=== PATIENT | female | born 1970 | race Caucasian/White ===

== ENCOUNTER → 2016-09-29 | Outpatient (CLI) | payer BC ==
[~2016-09-29] MED LIST: BIRTH CONTROL; LRT10T
--- NOTE | 2016-09-29 20:05 | Diagnostic Imaging Report ---
Bilateral screening mammogram 2D views with tomosynthesis The current study was also evaluated with a Computer Aided Detection (CAD) system. Indication: Screening. No current complaints stated on the questionnaire. COMPARISON: 09/28/15 FINDINGS: The breasts are composed of heterogeneously dense parenchyma which may decrease mammographic sensitivity. Stable circumscribed 4 mm lateral and 5 mm retroareolar right breast nodules are again seen probably representing small cysts. Allowing for technique and positional differences, no suspicious change is seen. IMPRESSION: No significant change. ACR BI-RADS Category 2: Benign findings. Result letter will be mailed to the patient. Note: At least 10% of breast cancer is not imaged by mammography. Dictated by: Dictated on workstation # [id number]
== END ==
LOC: RAD 09:38
PROVIDERS: ATTEND Family Medicine
DX: Z12.31 Encounter for screening mammogram for malignant neoplasm of breast (principal)
CPT/HCPCS: 77067

== ENCOUNTER → 2017-09-27 | Outpatient (CLI) | payer BC ==
--- NOTE | 2017-09-27 15:30 | Diagnostic Imaging Report ---
PROCEDURE: US Non-ob pelvis comp/trans. TECHNIQUE: Multiple realtime grayscale images were obtained of the pelvis in various projections endovaginally. Transabdominal imaging was also performed. INDICATION: Abnormal uterine bleeding. FINDINGS: The uterus measures 9.1 x 4.8 x 4.0 cm. No myometrial mass is seen. The endometrium is 6 mm in thickness. The ovaries were not visualized. No adnexal mass or free fluid is seen. IMPRESSION: Nonvisualized ovaries. The study is otherwise unremarkable. Dictated by: Dictated on workstation # [id number]
--- NOTE | 2017-09-28 08:26 | Diagnostic Imaging Report ---
INDICATION: Routine screening. Comparison is made with prior exam from 09/29/2016 and 09/28/2015. 2-D and 3-D bilateral screening mammography was performed with Computer Aided Detection (CAD) system. FINDINGS: Scattered fibroglandular densities are identified bilaterally. The parenchymal pattern is stable. The circumscribed nodules in the right breast are stable and consistent with benign etiology. No spiculated mass or malignant appearing microcalcifications are seen. The axillae are unremarkable. IMPRESSION: No mammographic features suspicious for malignancy are identified. ACR BI-RADS Category 2: Benign findings. Result letter will be mailed to the patient. Note: At least 10% of breast cancer is not imaged by mammography. Dictated by: Dictated on workstation # [id number]
== END ==
LOC: RAD 14:15
PROVIDERS: ATTEND Family Medicine
DX: Z12.31 Encounter for screening mammogram for malignant neoplasm of breast (principal); N93.9 Abnormal uterine and vaginal bleeding, unspecified
CPT/HCPCS: 76830; 76856; 77067

== ENCOUNTER → 2019-10-02 | Outpatient (CLI) | payer BC ==
--- NOTE | 2019-10-02 12:24 | Diagnostic Imaging Report ---
INDICATION: Routine screening. Comparison is made with prior mammogram 09/30/2018 and 09/27/2017. 2-D and 3-D bilateral screening mammography was performed with CAD. Both breasts remain heterogeneously dense, limiting the sensitivity of mammography. Both breasts contain circumscribed nodules which appear stable and likely benign. No dominant mass or malignant appearing microcalcifications are identified. Axillae are unremarkable. IMPRESSION: BI-RADS Category 2 No mammographic features suspicious for malignancy are identified. ACR BI-RADS Category 2: Benign findings. Result letter will be mailed to the patient. Note: At least 10% of breast cancer is not imaged by mammography. Dictated by: Dictated on workstation # [id number]
== END ==
LOC: RAD 09:47
PROVIDERS: ATTEND Family Medicine
DX: Z12.31 Encounter for screening mammogram for malignant neoplasm of breast (principal)
CPT/HCPCS: 77063; 77067

== ENCOUNTER → 2020-10-04 | Outpatient (CLI) | payer BC ==
--- NOTE | 2020-10-04 09:17 | Diagnostic Imaging Report ---
INDICATION: Routine screening. COMPARISON: 10/02/2019 and 07/15/2018. TECHNIQUE: 2D and 3D bilateral screening mammography was performed with CAD. FINDINGS: Both breasts remain heterogeneously dense, limiting the sensitivity of mammography. Circumscribed nodules in the right breast are stable. No spiculated mass or malignant-appearing microcalcifications are seen. Axillae are unremarkable. IMPRESSION: No mammographic features suspicious for malignancy are identified. ACR BI-RADS Category 2: Benign findings. Result letter will be mailed to the patient. Note: At least 10% of breast cancer is not imaged by mammography. Dictated by: Dictated on workstation # [id number]
== END ==
LOC: RAD 07:30
PROVIDERS: ATTEND Family Medicine
DX: Z12.31 Encounter for screening mammogram for malignant neoplasm of breast (principal)
CPT/HCPCS: 77063; 77067

== ENCOUNTER → 2021-10-05 | Outpatient (CLI) | payer BC ==
--- NOTE | 2021-10-05 12:45 | Diagnostic Imaging Report ---
Indication: Routine screening. Comparison is made with prior mammogram 10/04/2020 and 10/02/2019. 2-D and 3-D bilateral screening mammography was performed with CAD. CAD is utilized. The current study was also evaluated with a Computer Aided Detection (CAD) system. Both breasts are heterogeneously dense, limiting the sensitivity of mammography. The circumscribed nodules in both breasts appear stable. No new mass or malignant appearing microcalcifications are seen. Axillae are unremarkable. IMPRESSION: BI-RADS Category 2 No mammographic features suspicious for malignancy are identified. ACR BI-RADS Category 2: Benign findings. Result letter will be mailed to the patient. Note: At least 10% of breast cancer is not imaged by mammography. Dictated by: Dictated on workstation # [id number]
== END ==
LOC: RAD 08:00
PROVIDERS: ATTEND Family Medicine
DX: Z12.31 Encounter for screening mammogram for malignant neoplasm of breast (principal)
CPT/HCPCS: 77063; 77067

== ENCOUNTER 2022-10-25 07:00 | Outpatient (CLI) | payer BC ==
[~2022-10-25] VITALS: Ht 157.5 cm; Wt 116.8 kg
[2022-10-26] MEDS ORDERED: LORA10TA7 PO (14:58)
[2022-10-26] MEDS ORDERED: LISI5TAB20 PO (14:58)
[2022-10-26] MEDS ORDERED: OMEG10005 PO (14:58)
[2022-10-26] MEDS ORDERED: ST.300TA4 PO (14:58)
== END 2022-10-26 15:01 | disposition home or self-care (01) ==
LOC: PREOP 07:00
PROVIDERS: ATTEND Internal Medicine
DX: Z01.818 Encounter for other preprocedural examination (principal)

== ENCOUNTER 2022-11-03 07:12 | Day surgery (SDC) | payer BC ==
--- NOTE | 2022-10-25 08:58 | HISTORY AND PHYSICAL ---
COLONOSCOPY HISTORY AND PHYSICAL HISTORY OF PRESENT ILLNESS: The patient is a 52-year-old white female referred by Dr. Garibay for her first screening colonoscopy. She is deemed to be of average risk as she is not aware of any family history for colon cancer or polyps. Denies bright red blood per rectum, melena or change in bowel habits. This will be her first screening colonoscopy. PAST MEDICAL HISTORY: Significant for hypertension and seasonal allergies that she takes as needed loratadine. Only other prescription medication is lisinopril 5 mg daily. She denies aspirin nonsteroidal use. PAST SURGICAL HISTORY: Significant for a 27 years ago and cholecystectomy laparoscopically in the past. 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 She reports no past smoking history and no significant alcohol intake history. FAMILY HISTORY: Father is living at the age of 77 with history of coronary artery disease. Mother is living at the age of 77 with no health problems. He has 4 siblings, two brothers, two sisters with no reported health problems. REVIEW OF SYSTEMS: CONSTITUTIONAL: Denies night sweats, chills, fever or change in weight. PULMONARY: Denies cough, wheezing or shortness of breath. GASTROINTESTINAL: As noted in HPI. CARDIOVASCULAR: Denies chest pain, orthopnea, PND, or pedal edema. PHYSICAL EXAMINATION: GENERAL: Reveals a pleasant white female in no acute distress. VITAL SIGNS: A 5 feet 2 inches tall, weighing 257 pounds with a BMI of 47. HEENT: Unremarkable. She has a Mallampati 3 oropharyngeal configuration. CHEST: Clear to auscultation. CARDIOVASCULAR: Reveals a regular rate and rhythm without murmur, S3, or S4. ABDOMEN: Soft, supple without mass, organomegaly, or tenderness. EXTREMITIES: Revealed no cyanosis, clubbing or edema. ASSESSMENT AND PLAN: The patient is being set up for screening colonoscopy deemed to be of average risk. We did discuss oropharyngeal configuration increases the risk for significant sleep apnea. We will be monitoring for this during her procedure. Her hypertension appears to be under reasonable control. I thank you for the referral of this pleasant lady. Prep instructions were given and questions were answered. Job ID: [id number] DocumentID: [id number] Dictated Date: 10/09/2022 16:13:01 Scale And Skip Car Operator Date: 10/09/2022 17:24:00 Dictated By: ZACHARY WILSON MD
[~2022-11-03] VITALS: Ht 157.5 cm; Wt 116.8 kg
[~2022-11-03 07:12] MED LIST changes: +LISI5TAB20 PO; +LORA10TA7 PO; +OMEG10005 PO; +ST.300TA4 PO
[2022-11-03] MEDS ORDERED: LACTATED RINGERS 1,000 ML 1,000 ML IV STA (07:13)
[2022-11-03 07:41] VITALS: BP 130/83
--- NOTE | 2022-11-03 07:51 | Pre-Op Note & Conscious Sedat ---
Pre-Operative Progress Note Date H&P Reviewed: Nov 03, 2022 Time H&P Reviewed: 07:50 History & Physical: H&P Reviewed, Patient Examed, No changes noted Pre-Op Diagnosis: screening Moderate Sedation PreProcedure ASA Score 2 Airway Lungs Heart ASA score ASA 1: a normal healthy patient ASA 2: a patient with a mild systemic disease (mid diabetes, controlled hypertension, obesity ASA 3: a patient with a severe systemic disease that limits activity (angina, COPD, prior Myocardial infarction) ASA 4: a patient with an incapacitating disease that is a constant threat to life (CHF, renal failure) ASA 5: a moribund patient not expected to survive 24 hrs. (ruptured aneurysm) ASA 6: a declared brain- patient whose organs are being harvested. For emergent operations, add the letter E after the classification Mallampati Classification Grade 2 Sedation Plan Analgesia, Amnesia, Plan communicated to team members, Discussed options with patient/fam, Discussed risks with patient/fam The patient is an appropriate candidate to undergo the planned procedure, sedation, and anesthesia. The patient immediately re-assessed prior to indication. ZACHARY WILSON MD Nov 03, 2022 07:51
[2022-11-03 08:30] VITALS: BP 119/63
--- NOTE | 2022-11-03 08:30 | Anesthesia-General Post-Op ---
MAC Patient Condition Mental Status/LOC: Same as Preop Cardiovascular: Satisfactory Nausea/Vomiting: Absent Respiratory: Satisfactory Pain: Controlled Complications: Absent Post Op Complications Complications None Follow Up Care/Instructions Patient Instructions None needed. Anesthesiology Discharge Order Discharge Order Patient is doing well, no complaints, stable vital signs, no apparent adverse anesthesia problems. No complications reported per nursing. BJ HARP CRNA Nov 03, 2022 08:30
--- NOTE | 2022-11-03 08:32 | Progress Note-Post Operative ---
Post-Procedure Note Physician (s)/Compositor Apprentice (s) Physician ZACHARY WILSON MD Pre-Procedure Diagnosis Pre-Procedure Diagnosis: screening Post-Procedure Diagnosis Post-operative diagnosis: Prior to undergoing colonoscopy digital rectal evaluation was performed. Anal sphincter tone was normal and the perianal reflexes intact. No abnormalities noted on digital inspection anal canal or distal rectal vault. The colonoscope was then inserted into the rectum and under direct visualization advanced to the cecum. The cecum was identified by the indication of the appendiceal orifice and the ileocecal valve. Photographic documentation was obtained. Careful inspection was made as the colonoscope withdrawn. Quality the prep was good. Findings there are no evidence for internal or external hemorrhoids. Present in the mid rectum was a sessile lobulated 1.5 cm adenomatous appearing polyp without ulceration photograph was obtained it was then snared and removed in its entirety submitted for histopathology with minimal blood loss. The remainder the rectum sigmoid colon descending colon splenic flexure transverse colon hepatic flexure and ascending colon were unremarkable. A 3 to 4 mm sessile polyp was noted in the cecum that was photographed biopsied and ablated with no blood loss. A/P 1. 2 polyps removed today the larger from the mid rectum and smaller from the cecum as noted above via snare and hot biopsy respectively. Provided there are no surprises on histopathology we will be advocating repeat surveillance colonoscopy in 1 year. 2. Patient did exhibit obstructive breathing pattern on her back with body habitus and oropharyngeal airway conducive due to significant sleep apnea this was discussed with the patient with consideration for sleep study. I thank you for the furl this pleasant lady sincerely Zachary Wilson MD. CC: MD STEVE Sethi MARK D MD Nov 03, 2022 08:32
[2022-11-03 08:35] VITALS: BP 119/65
[2022-11-03 08:42] VITALS: BP 124/75
[2022-11-03 08:54] VITALS: BP 124/75
== END 2022-11-03 09:14 | disposition home or self-care (01) ==
LOC: ENDO 07:12
PROVIDERS: ATTEND Internal Medicine
DX: Z12.11 Encounter for screening for malignant neoplasm of colon (principal); D12.0 Benign neoplasm of cecum; D12.8 Benign neoplasm of rectum; E66.9 Obesity, unspecified; I10 Essential (primary) hypertension; Z79.899 Other long term (current) drug therapy; Z68.42 Body mass index [BMI] 45.0-49.9, adult

== ENCOUNTER 2023-01-21 22:52 | Emergency (ER) | payer BC ==
[~2023-01-21] VITALS: Ht 157.5 cm; Wt 116.8 kg
[2023-01-21] MEDS ORDERED: NITROGLYCERIN 2% OINT 1 GM UNIT DOSE PACKET TOP STA (23:17)
--- NOTE | 2023-01-21 23:26 | ED Cardiac General ---
History of Present Illness General Chief Complaint: Chest Pain Stated Complaint: HIGH BP Nursing Triage Note: TO ED VIA POV AND AMBULATORY TO ROOM 7 WITH C/O "PROBLEMS WITH BLOOD PRESSURE". PT STATES SBP USUALLY IN ONE TEENS, BUT FELT WEIRD EARLIER AND CHECK BP AND IT WAS 141/99 AND 150/102. C/O CHEST "BURNING" IN CENTER OF CHEST SINCE 1400 WITH RADIATION TO RIGHT JAW AND SOME SOA. PT VERY TEARFUL DURING TRIAGE. Source: patient History of Present Illness Date Seen by Provider: Jan 21, 2023 Time Seen by Provider: 23:05 Initial Comments PT ARRIVES VIA POV FROM HOME PT STATES THAT SINCE 1400 TODAY, SHE HAS HAD BURNING AND TIGHTNESS IN THE CENTER OF HER CHEST, AND PAIN RADIATES TO RIGHT JAW HAS ALSO BEEN SHORT OF BREATH TODAY SHE CHECKED HER BP TONIGHT AND IT WAS 141/99 AND THEN 150/102, SO CAME HERE PT STATES HER NORMAL BP IS IN 110'S SYSTOLIC. SHE WAS STARTED LISINOPRIL 5 MG IN JULY OR AUGUST OF THIS YEAR NO SWEATS NO NAUSEA/VOMITING NO SWELLING IN LEGS/FEET OR PAIN IN CALVES STATES HER HEART HAS BEEN POUNDING AND RACING NO HEADACHE NO VISION CHANGES SHE HAS HAD ONGOING EPISODES OF DIZZINESS. SHE HAS BEEN VERY TIRED ALL WEEK--NO COUGH OR COLD SYMPTOMS, NO FEVER, NO GI SYMPTOMS, NO HEADACHE SHE C/O BEING EXTREMELY ANXIOUS ALL THE TIME SHE STATES SHE HAS BEEN GOING THROUGH MENOPAUSE--LMP 11/18/2021. ASA po INTER FOLD ROLL CUTTER: No PCP: DR. GARCIA Allergies and Home Medications Allergies Coded Allergies: Sulfa (Sulfonamides) (Unverified Allergy, Mild, FLUSHED, 03/16/09) Patient Home Medication List Home Medication List Reviewed: Yes Lisinopril (Lisinopril) 5 Mg Tablet, 5 MG PO DAILY, (Reported) Entered as Reported by: KIRT AU on 10/26/221457 Loratadine (Loratadine) 10 Mg Tablet, 10 MG PO DAILY, (Reported) Entered as Reported by: KIRT AU on 10/26/221457 [place]-3 Fatty Acids ([place]-3) 1,000 Mg Capsule, 1,000 MG PO DAILY, (Reported) Entered as Reported by: KIRT AU on 10/26/221457 [place]'s Wort (Matthew's Wort) 300 Mg Tablet, 300 MG PO DAILY, (Reported) Entered as Reported by: KIRT AU on 10/26/22 7448 Review of Systems Review of Systems Constitutional: see HPI EENTM: See HPI Respiratory: See HPI Cardiovascular: See HPI Gastrointestinal: No Symptoms Reported; Denies Abdominal Pain, Denies Nausea, Denies Vomiting Genitourinary: No Symptoms Reported Musculoskeletal: no symptoms reported Skin: no symptoms reported Psychiatric/Neurological: See HPI, Anxiety Endocrine: No Symptoms Reported Hematologic/Lymphatic: No Symptoms Reported Past Yehpbzn-Diowgf-Qprozk Hx Patient Social History Tobacco Use?: No Substance use?: No Alcohol Use?: No Immunizations Up To Date Influenza Vaccine Up-to-Date: Yes; Up-to-Date COVID19 Vaccine Ski Patrol: STATES 4 VACCINES Seasonal Allergies Seasonal Allergies: Yes Past Medical History Surgeries: Yes (COLONOSCOPY 09/2022) Section, Gallbladder Respiratory: No Cardiac: Yes Hypertension Neurological: No Reproductive Disorders: No Sexually Transmitted Disease: No Genitourinary: No Gastrointestinal: Yes (S/P CHOLECYSTECTOMY) Gall Bladder Disease Musculoskeletal: No Endocrine: No HEENT: Yes (glasses) Cancer: No Psychosocial: Yes Anxiety Integumentary: No Blood Disorders: No Physical Exam Vital Signs Vital Signs - First Documented 01/21/23 23:13 Temp 37.0 Pulse 79 Resp 16 B/P (MAP) 166/105 (125) Pulse Ox 100 O2 Delivery Room Air Capillary Refill : Less Than 3 Seconds Height, Weight, BMI Height: '" Weight: lbs. oz. kg; 47.00 BMI Method: General Appearance: WD/WN, Anxious, Other (EXTREMELY ANXIOUS AND CRYING UNCONTROLLABLY) HEENT: PERRL/EOMI Neck: Normal Inspection Respiratory: Chest Non Tender, Normal Breath Sounds, No Accessory Muscle Use, No Respiratory Distress Cardiovascular: Regular Rate, Rhythm, No Edema, No JVD, No Murmur, Normal Peripheral Pulses Gastrointestinal: Non Tender, Soft Extremity: Normal Capillary Refill, Normal Inspection, Normal Range of Motion, Non Tender, No Calf Tenderness, No Pedal Edema Neurologic/Psychiatric: Alert, Oriented x3, No Motor/Sensory Deficits, brand sales manager II- XII Norm as Tested Skin: Normal Color, Warm/Dry Progress/Results/Core Measures Results/Orders Lab Results Laboratory Tests Test 01/21/23 23:08 Range/Units White Blood Count 10.3 4.3-11.0 10^3/uL Red Blood Count 4.36 3.80-5.11 10^6/uL Hemoglobin 12.7 11.5-16.0 g/dL Hematocrit 40 35-52 % Mean Corpuscular Volume 92 80-99 fL Mean Corpuscular Hemoglobin 29 25-34 pg Mean Corpuscular Hemoglobin Concent 32 32-36 g/dL Red Cell Distribution Width 13.9 10.0-14.5 % Platelet Count 235 130-400 10^3/uL Mean Platelet Volume 11.2 9.0-12.2 fL Immature Granulocyte % (Auto) 0 % Neutrophils (%) (Auto) 61 42-75 % Lymphocytes (%) (Auto) 28 12-44 % Monocytes (%) (Auto) 6 0-12 % Eosinophils (%) (Auto) 4 0-10 % Basophils (%) (Auto) 1 0-10 % Neutrophils # (Auto) 6.3 1.8-7.8 10^3/uL Lymphocytes # (Auto) 2.9 1.0-4.0 10^3/uL Monocytes # (Auto) 0.6 0.0-1.0 10^3/uL Eosinophils # (Auto) 0.5 H 0.0-0.3 10^3/uL Basophils # (Auto) 0.1 0.0-0.1 10^3/uL Immature Granulocyte # (Auto) 0.0 0.0-0.1 10^3/uL Percent Immature Platelet Fraction 8.6 H 0.0-7.6 % Prothrombin Time 13.0 12.2-14.7 SEC INR Comment 1.0 0.8-1.4 Activated Partial Thromboplast Time 35 24-35 SEC D-Dimer 0.56 H 0.00-0.49 UG/ML Sodium Level 141 135-145 MMOL/L Potassium Level 4.1 3.6-5.0 MMOL/L Chloride Level 103 98-107 MMOL/L Carbon Dioxide Level 27 21-32 MMOL/L Anion Gap 11 5-14 MMOL/L Blood Urea Nitrogen 14 7-18 MG/DL Creatinine 1.00 0.60-1.30 MG/DL Estimat Glomerular Filtration Rate 69 BUN/Creatinine Ratio 14 Glucose Level 109 H 70-105 MG/DL Calcium Level 10.6 H 8.5-10.1 MG/DL Corrected Calcium 10.2 H 8.5-10.1 MG/DL Magnesium Level 2.3 1.6-2.4 MG/DL Total Bilirubin 0.3 0.1-1.0 MG/DL Aspartate Amino Transf (AST/SGOT) 18 5-34 U/L Alanine Aminotransferase (ALT/SGPT) 22 0-55 U/L Alkaline Phosphatase 86 40-136 U/L Total Creatine Kinase 67 29-168 U/L Creatine Kinase MB 1.0 <6.6 NG/ML Myoglobin 25.7 10.0-92.0 NG/ML Troponin I < 0.028 <0.028 NG/ML B-Type Natriuretic Peptide 11.7 <100.0 PG/ML Total Protein 7.9 6.4-8.2 GM/DL Albumin 4.5 3.2-4.5 GM/DL Amylase Level 74 25-125 U/L Lipase 11 8-78 U/L Serum Test, Qualitative NEGATIVE NEGATIVE My Orders Orders - CED SANTACRUZ DO Ekg Tracing (01/21/23 23:04) Cbc And Automated Diff (01/21/23 23:17) Magnesium (01/21/23 23:17) Chest 1 View, Ap/Pa Only (01/21/23 23:17) Comprehensive Metabolic Panel (01/21/23 23:17) Myoglobin Serum (01/21/23 23:17) Protime With Inr (01/21/23 23:17) Partial Thromboplastin Time (01/21/23 23:17) O2 (01/21/23 23:17) Monitor-Rhythm Ecg Trace Only (01/21/23 23:17) Ed Iv/Invasive Line Start (01/21/23 23:17) Creatine Kinase (01/21/23 23:17) Creatine Kinase Mb (01/21/23 23:17) Lipase (01/21/23 23:17) Amylase (01/21/23 23:17) Bnp Mar[place] (01/21/23 23:17) Fibrin Degradation Products (01/21/23 23:17) Troponin I [place] (01/21/23 23:17) Nitroglycerin Ointment (Nitroglycerin (01/21/23 23:17) Aspirin Chewable Tablet (Aspirin Chewabl (01/21/23 23:30) Hcg,Qualitative Serum (01/21/23 23:17) Ondansetron Injection (Ondansetron Inj (01/22/23 00:00) Ed Iv/Invasive Line Start (01/21/23 23:51) Lactated Ringers 1,000 Ml (Lactated Ring (01/22/23 00:00) Ondansetron Injection (Ondansetron Inj (01/22/23 00:00) Medications Given in ED Current Medications Medications Dose Ordered Sig/Grzegorz Route Start Time Stop Time Status Last Admin Dose Admin Aspirin 324 mg ONCE ONCE PO 01/21/23 23:30 01/21/23 23:31 DC 01/21/23 23:22 324 MG Lactated Ringer's 1,000 ml @ 0 mls/hr Q0M ONCE IV 01/22/23 00:00 01/22/23 00:01 DC 01/21/23 23:55 999 MLS/HR Vital Signs/I&O 01/21/23 23:13 Temp 37.0 Pulse 79 Resp 16 B/P (MAP) 166/105 (125) Pulse Ox 100 O2 Delivery Room Air Blood Pressure Mean: 125 Progress Progress Note : Progress Note VITALS ON ARRIVAL: TEMP 37.0=98.6, HR 79, RR 16, BP 166/105, O2 SAT 100% ON ROOM AIR GIVEN: -ASPIRIN -NITROPASTE -IV FLUIDS -ZOFRAN PT WITH INCREASED ANXIETY WITH ATTEMPTS TO START IV. 2350--C/O DIZZINESS, NAUSEA AND BP DROPPED. PT WITH INCREASED ANXIETY. NITROPASTE REMOVED, GIVEN IV FLUIDS AND ZOFRAN BP QUICKLY RECOVERED PRIOR TO IV FLUIDS ALL SYMPTOMS RESOLVED SHORTLY AFTER THIS PT REMAINED SYMPTOM-FREE FOR REMAINDER OF ER STAY, OTHER THAN CONTINUED ANXIETY, BUT NOT ANXIOUS SHE WAS ON ARRIVAL. LABS: -CBC NORMAL -CMP NORMAL -MG NORMAL -AMYLASE/LIPASE NORMAL -TROPONIN NEGATIVE -BNP NORMAL -PT/PTT/INR NORMAL -D-DIMER 0.56 -HCG NEGATIVE EKG NORMAL CXR UNREMARKABLE, PENDING RADIOLOGIST REVIEW VITALS AT DISMISSAL: BP 114/62, HR 64, O2 SAT 98% ON ROOM AIR PT STATES SHE FEELS SO MUCH BETTER AT DISMISSAL, AND WOULD LIKE TO GO HOME. DISCUSSED TEST RESULTS, ANTICIPATED COURSE, NEED FOR FOLLOW UP AND RETURN PRECAUTIONS. PT AND BOTH AGREE THAT PT'S ELEVATED BP AND SYMPTOMS ARE DIRECTLY RELATED TO HER ONGOING ANXIETY ISSUES. PT STATES SHE WILL FOLLOW UP WITH DR. GARCIA THIS WEEK. REVIEWED PRIOR RECORDS--ONLY 2 OUTPATIENT PROCEDURES, NO ADMITS OR ER VISITS. Initial ECG Impression Date: Jan 21, 2023 Initial ECG Impression Time: 23:12 Initial ECG Rate: 73 Initial ECG Rhythm: Normal Sinus Initial ECG Intervals: Normal Initial ECG Impression: Normal Initial ECG Comparisson: No Previous ECG Available Comment INTERPRETED BY ME Diagnostic Imaging Comments CXR--NO ACUTE PROCESS, PENDING RADIOLOGIST REVIEW Reviewed: Reviewed by Me Departure Impression Primary Impression: Chest pain Additional Impressions: HTN (hypertension) Anxiety Disposition: HOME, SELF-CARE Condition: Improved Departure-Patient Inst. Decision time for Depature: 00:20 Referrals: HI GARCIA MD (PCP/Family) Primary Care Physician Patient Instructions: Anxiety, Adult ED, High Blood Pressure ED, DASH Diet, Chest Pain (DC) Add. Discharge Instructions: CONTINUE YOUR MEDICATIONS PRESCRIBED FOLLOW UP WITH DR. GARCIA THIS WEEK FOR FURTHER CARE--CALL IN THE MORNING TO ROBERTO MCDANIEL AN APPOINTMENT RETURN TO ER IF SYMPTOMS WORSEN All discharge instructions reviewed with patient and/or family. Voiced u nderstanding. CED SANTACRUZ DO Jan 21, 2023 23:26
[2023-01-21 23:28] LABS: EOSINOPHILS # (AUTO) 0.5 10^3/uL (0.0-0.3); LYMPHOCYTES % (AUTO) 28 % (12-44); MEAN CORPUSCULAR HGB CONC 32 g/dL (32-36)
[2023-01-21 23:30] LABS: BASOPHILS # (AUTO) 0.1 10^3/uL (0.0-0.1); BASOPHILS % (AUTO) 1 % (0-10); EOSINOPHILS % (AUTO) 4 % (0-10); HEMATOCRIT 40 % (35-52); HEMOGLOBIN 12.7 g/dL (11.5-16.0); LYMPHOCYTES # (AUTO) 2.9 10^3/uL (1.0-4.0); MEAN CORPUSCULAR HEMOGLOBIN 29 pg (25-34); MEAN CORPUSCULAR VOLUME 92 fL (80-99); MEAN PLATELET VOLUME 11.2 fL (9.0-12.2); MONOCYTES # (AUTO) 0.6 10^3/uL (0.0-1.0); MONOCYTES % (AUTO) 6 % (0-12); NEUTROPHILS # (AUTO) 6.3 10^3/uL (1.8-7.8); NEUTROPHILS % (AUTO) 61 % (42-75); PLATELET COUNT 235 10^3/uL (130-400); WHITE BLOOD COUNT 10.3 10^3/uL (4.3-11.0)
[2023-01-21] MEDS ORDERED: ASPIRIN 81 MG CHEWABLE TABLET PO ONE (23:30)
[2023-01-21 23:52] LABS: ALBUMIN 4.5 GM/DL (3.2-4.5); CHLORIDE 103 MMOL/L (98-107); POTASSIUM 4.1 MMOL/L (3.6-5.0); SODIUM 141 MMOL/L (135-145)
[2023-01-21 23:53] LABS: AMYLASE 74 U/L (25-125); CALCIUM 10.6 MG/DL (8.5-10.1)
[2023-01-21 23:54] LABS: FIBRIN DEGRADATION PRODUCTS 0.56 UG/ML (0.00-0.49); GLUCOSE 109 MG/DL (70-105); TOTAL PROTEIN 7.9 GM/DL (6.4-8.2)
[2023-01-21 23:56] LABS: BILIRUBIN,TOTAL 0.3 MG/DL (0.1-1.0); CARBON DIOXIDE 27 MMOL/L (21-32)
[2023-01-21 23:58] LABS: ALKALINE PHOSPHATASE 86 U/L (40-136); GFR ESTIMATED 69
[2023-01-21 23:59] LABS: BUN/CREATININE RATIO 14
[2023-01-22] MEDS ORDERED: LACTATED RINGERS 1,000 ML 1,000 ML IV ONE
[2023-01-22] MEDS ORDERED: ONDANSETRON INJECTION 4 MG/2 ML (SDV) IVP ONE ×2
[2023-01-22 00:01] LABS: ALANINE AMINOTRANSFERASE 22 U/L (0-55); MAGNESIUM 2.3 MG/DL (1.6-2.4)
[2023-01-22 00:02] LABS: CREATINE KINASE 67 U/L (29-168); LIPASE 11 U/L (8-78)
[2023-01-22 00:25] VITALS: BP 105/60
--- NOTE | 2023-01-22 05:39 | Diagnostic Imaging Report ---
INDICATION: Chest pain COMPARISON: No previous study is available for comparison at this time. FINDINGS: Heart size and pulmonary vasculature are within normal limits, and the lungs are clear, bilaterally. IMPRESSION: Unremarkable chest. Dictated by: Dictated on workstation # [id number]
== END 2023-01-22 00:31 | disposition home or self-care (01) ==
LOC: EDUNIT# 22:52 → ER 22:53
DX: R07.89 Other chest pain (principal); I10 Essential (primary) hypertension; F41.9 Anxiety disorder, unspecified
CPT/HCPCS: 36415; 71045; 80053; 82150; 82550; 82553; 83690; 83735; 83874; 83880; 84484; 84703; 85025; 85379; 85610; 85730; 93005; 93041